=== PATIENT | female | born 1960 | race Caucasian/White ===

== ENCOUNTER 2016-11-14 14:15 | Outpatient (CLI) | payer OTHER ==
--- NOTE | 2016-11-18 18:40 | Mammography Report ---
DIGITAL SCREENING MAMMOGRAM: 11/14/2016 CLINICAL INDICATION: A 56-year-old for screening. TECHNIQUE: Routine CC and MLO projections were obtained of the breasts. COMPARISON: 10/2015, 09/2014, 05/2013, 04/2012, 02/2011, 11/2009, 10/2008. FINDINGS: The breasts demonstrate scattered fibroglandular densities bilaterally. Postbiopsy change s in the left breast are stable. A few coarse and punctate, typically benign calcifications are pres ent. No suspicious masses, clustered microcalcifications, or regions of architectural distortion are identified. IMPRESSION: BENIGN FINDINGS. RECOMMENDATION: Routine annual screening unless otherwise clinically indicated. BI-RADS category 2, benign findings. STANDARD QUALIFYING STATEMENTS 1. This examination was reviewed with the aid of Computer-Aided Detection (CAD). 2. A negative or benign imaging report should not delay biopsy if clinically suspicious findings are present. Consider surgical consultation if warranted. More than 5% of cancers are not identified by i maging. 3. Dense breasts may obscure an underlying neoplasm. JOB #: [id number] EXT JOB #:[id number]
== END 2016-11-14 14:16 | disposition home or self-care (01) ==
LOC: DI.S 14:15
PROVIDERS: ATTEND Physician Assistant
DX: Z12.31 Encounter for screening mammogram for malignant neoplasm of breast (principal)
CPT/HCPCS: 77067

== ENCOUNTER 2017-04-13 17:49 | Emergency (ER) | payer OTHER ==
[2017-04-13 17:56] VITALS: BP 152/68
--- NOTE | 2017-04-13 18:46 | ED Physician Documentation ---
PD HPI URI - Stated complaint Stated Complaint: THROAT SWELLING - Chief complaint Chief Complaint: Heent - History obtained from History obtained from: Patient - History of Present Illness Timing - onset: How many days ago (few) Timing duration: Days (few) Timing details: Gradual onset, Still present Associated symptoms: Fever, Chills, Sore throat, Swollen nodes. 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 denies: Abdominal Pain, Vomiting, Diarrhea Skin: denies: Rash, Lesions PD PAST MEDICAL HISTORY - Past Medical History Cardiovascular: Hypertension, High cholesterol Respiratory: None Endocrine/Autoimmune: Type 2 diabetes GI: None : None HEENT: None Psych: None Musculoskeletal: Osteoarthritis Derm: None - Past Surgical History /COMPUTER SERVICE TECHNICIAN: section, Other - Present Medications Home Medications: Ambulatory Orders Medication Instructions Recorded Confirmed Cholecalciferol (Vitamin D3) 2,000 unit PO DAILY 04/06/13 04/13/17 [Vitamin D] Lisinopril 20 mg PO DAILY 04/06/13 04/13/17 Metformin HCl 1,000 mg PO BID 04/06/13 04/13/17 Multivitamin [Multivitamins] 1 each PO DAILY 04/06/13 04/13/17 Pravastatin Sodium 40 mg PO HS 04/06/13 04/13/17 Cephalexin [Keflex] 500 mg PO QID #28 capsule 04/13/17 Cetirizine [ZyrTEC] 10 mg PO ONCE 04/13/17 04/13/17 Dexamethasone [Decadron] 4 mg PO DAILY #5 tablet 04/13/17 HYDROcod/ACETAM 5/325 [[place] 5/325] 1 tab PO Q6H PRN #15 tablet 04/13/17 - Allergies Allergies/Adverse Reactions: Allergies Allergy/AdvReac Type Severity Reaction Status Date / Time Penicillins Allergy Rash Verified 04/13/17 17:54 - Social History Does the pt smoke?: No Smoking Status: Never smoker Does the pt drink ETOH?: No Does the pt have substance abuse?: No - Immunizations Immunizations are current?: Yes - POLST Patient has POLST: No PD ED PE NORMAL - Vitals Vital signs reviewed: Yes - General General: Alert and oriented X 3, Well developed/nourished, Other (some muffling of voice. There is large swelling left peritonsillar area with protrusion of mucosal tissue toward midline. Small point of white that looks like pimple head at mid portion of the swelling. Touching at that spot with tongue depressor caused a steady flow of pus from a hole in that location. ) - Neck Neck: Supple, no meningeal sign, Other (left anterior adenopathy. ) - Cardiac Cardiac: RRR, No murmur - Respiratory Respiratory: Clear bilaterally - Abdomen Abdomen: Soft, Non tender - Derm Derm: Normal color, Warm and dry - Neuro Neuro: Alert and oriented X 3, No motor deficit. No: Normal speech (some hoarseness) - Psych Psych: Normal mood Results - Vitals Vitals: Oxygen O2 Source Room air - Labs Labs: Microbiology 04/13/17 19:05 Throat Culture - Preliminary Throat MIXED OROPHARYNGEAL PREET PRESENT. NO BETA STREP PRESENT IN CULTURE. PD MEDICAL DECISION MAKING - ED course Complexity details: re-evaluated patient (feeling much improved after drainage, IV meds/abx. ), considered differential (spontaneous drainage from just touching the abscess with tongue depressor. It had adequate hole to allow continued drainage and the abscess seems significantly deflated.), d/w patient, d/w community resource consultant ([place] coordinating physician, who said patient can go to any ENT and did not need to see a [place] staff one.) Departure - Departure Disposition: 01 Home, Self Care Clinical Impression: Peritonsillar abscess Condition: Stable Record reviewed to determine appropriate education?: Yes Instructions: ED Peritonsillar Abscess Follow-Up: Norberto Thompson MD [Physician No Access] - Prescriptions: Cephalexin [Keflex] 500 mg PO QID #28 capsule Dexamethasone [Decadron] 4 mg PO DAILY #5 tablet HYDROcod/ACETAM 5/325 [[place] 5/325] 1 tab PO Q6H PRN #15 tablet PRN Reason: Pain Comments: The [place] patient admitting representative said we could just give your referral to and ENT group in [place]. I gave her the name of 1 of the ENT in the [facility] but when you call them just ask for any provider that is next available. You could also go with the provider that Dr. Naylor uses in the [place] said that was okay. For the infection use cephalexin as directed. Decadron daily for 5 more days for the inflammation part follow-up with your primary care or preferably ear nose and throat in 3 or 4 days for reevaluation. Potentially there is sometimes repeat drainage that needs to occur. After a peritonsillar abscess, there is also question her discussion of whether to have a tonsil surgery. Return if worsening again. Discharge Date/Time: 04/13/17 20:55
[2017-04-13] MEDS ORDERED: cefTRIAXone 2 GM in SODIUM CHLORIDE 0.9% MINIBAG 100 ML IV STA (19:08)
[2017-04-13] MEDS ORDERED: HYDROmorphone 0.5 MG/0.5 ML SYRINGE IVP STA (19:08)
[2017-04-13] MEDS ORDERED: DEXAMETHASONE 10 MG/ML VIAL IVP STA (19:08)
[2017-04-13] MEDS ORDERED: KETOROLAC 30 MG/ML VIAL IVP STA (19:08)
[2017-04-13] MEDS ORDERED: cefTRIAXone 2 GM VIAL ONE (19:36)
[2017-04-13] MEDS ORDERED: HYDROmorphone 1 MG/ML SYRINGE ONE (19:36)
[2017-04-13] MEDS ORDERED: KETOROLAC 30 MG/ML VIAL ONE (19:36)
[2017-04-13] MEDS ORDERED: DEXAMETHASONE 10 MG/ML VIAL ONE (19:36)
[2017-04-13] MEDS ORDERED: HYDROcod/ACET 5/325 Prepack 6 PO ONE ×2 (20:40→20:52)
== END 2017-04-13 20:55 | disposition home or self-care (01) ==
LOC: ED 17:49
DX: J36 Peritonsillar abscess (principal); I10 Essential (primary) hypertension; E78.00 Pure hypercholesterolemia, unspecified; E11.9 Type 2 diabetes mellitus without complications
CPT/HCPCS: 87070; 96365; 96375; 99283; J1170

== ENCOUNTER 2018-01-29 08:37 | Outpatient (CLI) | payer OTHER ==
--- NOTE | 2018-02-01 12:38 | Mammography Report ---
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 TECHNIQUE: Bilateral CC, left laterally exaggerated CC, bilateral MLO views were obtained. COMPARISON: 11/14/2016, 11/09/2015, 09/21/2014, 06/04/2013. FINDINGS: The breasts demonstrate scattered fibroglandular densities bilaterally. Post operative changes in the left breast are stable. Typically benign coarse calcifications are seen in the right breast. The right MLO view reveals a new symmetry 8 cm posterior to the nipple which is not definitely identified on the cc view and requires additional spot compression imaging. IMPRESSION: Incomplete examination RECOMMENDATION: Additional evaluation as above. BIRADS CATEGORY 0: Incomplete examination STANDARD QUALIFYING STATEMENTS: 1. This examination was reviewed with the aid of Computer-Aided Detection (CAD). 2. A negative or benign imaging report should not delay biopsy if clinically suspicious findings are present. Consider surgical consultation if warrented. More than 5% of cancers are not identified by imaging. 3. Dense breasts may obscure an underlying neoplasm.
== END 2018-01-29 08:38 | disposition home or self-care (01) ==
LOC: DI.N 08:37
PROVIDERS: ATTEND Physician Assistant
DX: Z12.31 Encounter for screening mammogram for malignant neoplasm of breast (principal)
CPT/HCPCS: 77067

== ENCOUNTER 2018-09-14 08:00 | Outpatient (CLI) | payer OTHER ==
[2018-09-15 13:26] LABS: HEPATITIS B SURFACE ANTIGEN NON-REACTIVE (NON-REACTIVE)
[2018-09-15 14:36] LABS: HIV AG/AB 4TH GEN NON-REACTIVE (NON-REACTIVE)
== END 2018-09-14 23:59 | disposition home or self-care (01) ==
LOC: LAB.R 08:00
PROVIDERS: ATTEND Pediatrics
DX: Z11.4 Encounter for screening for human immunodeficiency virus [HIV] (principal); Z77.21 Contact with and (suspected) exposure to potentially hazardous body fluids
CPT/HCPCS: 87340; 87389

== ENCOUNTER 2019-07-28 11:11 | Outpatient (CLI) | payer OTHER ==
--- NOTE | 2019-07-28 12:21 | Mammography Report ---
Reason: ROUTINE MAMMO Procedure Date: 07/28/2019 Accession Number: [id number] / [id number] Procedure: MGS - Screening Mammo Dig Bilat CPT Code: Final Report FULL RESULT: EXAM: Screening Mammo Dig Bilat DATE: 07/28/2019 11:32 AM CLINICAL HISTORY: History of left breast lipoma status post biopsy. For routine screening. TECHNIQUE: (B) - Bilateral CC and MLO views were obtained. COMPARISON: 11/14/2016, 11/09/2015, 10-04, 06/04/2013, 05/21/2012, 02/28/2011, 11/24/2009. PARENCHYMAL PATTERN: (A) - The breasts demonstrate scattered fibroglandular densities bilaterally. FINDINGS: No significant interval change. There are no suspicious masses, calcifications, or areas of distortion. A few scattered benign-appearing calcifications are stable. IMPRESSION: Negative examination. BI-RADS category 1. RECOMMENDATION: (ANNUAL) - Recommend routine annual screening mammography. BI-RADS CATEGORY: (1) - Negative. STANDARD QUALIFYING STATEMENTS: 1. This examination was not reviewed with the aid of Computer-Aided Detection (CAD). 2. A negative or benign imaging report should not preclude biopsy if clinically suspicious findings are present. 3. Dense breasts may obscure an underlying neoplasm. 4. This examination was reviewed without the aid of 3D breast imaging (tomosynthesis).
== END 2019-07-28 11:12 | disposition home or self-care (01) ==
LOC: DI.S 11:11
DX: Z12.31 Encounter for screening mammogram for malignant neoplasm of breast (principal)
CPT/HCPCS: 77067

== ENCOUNTER 2019-12-27 18:02 | Outpatient (CLI) | payer OTHER | END 2019-12-27 18:03 | disposition home or self-care (01) | LOC: LAB 18:02 | PROVIDERS: ATTEND Pediatrics | DX: Z11.59 Encounter for screening for other viral diseases (principal) | CPT/HCPCS: 81599 ==

== ENCOUNTER 2020-12-25 09:46 | Outpatient (CLI) | payer OTHER ==
--- NOTE | 2020-12-26 11:52 | Mammography Report ---
BILATERAL DIGITAL SCREENING MAMMOGRAM 3D/2D: 12/25/2020 CLINICAL: Routine screening. Comparison is made to exams dated: 07/28/2019 mammogram - [facility], 02/16/2018 mamm ogram, 02/16/2018 ultrasound - [facility], 01/29/2018 mammogram, 11/14/2016 mammogram, and 11/09/2015 mammogram - [facility]. The tissue of both breasts is predominantly fat ty. No significant masses, calcifications, or other findings are seen in either breast. There has been no significant interval change. IMPRESSION: NEGATIVE There is no mammographic evidence of malignancy. A 1 year screening mammogram is recommended. This exam was interpreted at Station ID: [id number]. NOTE: For mammograms, a report in lay terms will be sent to the patient. Approximately 15% of breast malignancies will not be visualized mammographically. In the management of a palpable breast mass, a negative mammogram must not discourage biopsy of a clinically suspicious lesion. Electronically Signed By: Mark Vivas acr/penrad:12/25/2020 17:40:08 ACR BI-RADS Category 1: Negative 3341F PARENCHYMAL PATTERN: (F) - The breast(s) demonstrate(s) diffuse fatty replacement. BI-RADS CATEGORY: (1) - 1 RECOMMENDATION: (ANNUAL) - Recommend routine annual screening mammography. [id number] 1 year screening LATERALITY: (B)
== END 2020-12-25 09:47 | disposition home or self-care (01) ==
LOC: DI.S 09:46
DX: Z12.31 Encounter for screening mammogram for malignant neoplasm of breast (principal)

== ENCOUNTER 2022-06-04 13:13 | Outpatient (CLI) | payer OTHER ==
--- NOTE | 2022-06-05 10:58 | Mammography Report ---
BILATERAL DIGITAL SCREENING MAMMOGRAM 3D/2D: 06/04/2022 CLINICAL: Routine screening. Comparison is made to exams dated: 12/25/2020 mammogram and 07/28/2019 mammogram - [facility]. Both breasts are almost entirely fatty (category a/<25% glandular tissue). No significant masses, calcifications, or other findings are seen in either breast. There has been no significant interval change. IMPRESSION: NEGATIVE There is no mammographic evidence of malignancy. A 1 year screening mammogram is recommended. Based on the Tyrer Cuzick model (a risk assessment model) the patients lifetime risk is 4.2% and her 10 year risk is 1.7%. According to the ACR, ACS, and NCCN guidelines, an annual breast MRI exam dinesh g with mammogram is recommended if the patients lifetime risk is 20% or greater. This exam was interpreted at Station ID: [id number]. NOTE: For mammograms, a report in lay terms will be sent to the patient. Approximately 15% of breast malignancies will not be visualized mammographically. In the management of a palpable breast mass, a negative mammogram must not discourage biopsy of a clinically suspicious lesion. Electronically Signed By: Nacho johnson/penrad:06/04/2022 15:59:01 ACR BI-RADS Category 1: Negative 3341F PARENCHYMAL PATTERN: (F) - The breast(s) demonstrate(s) diffuse fatty replacement. BI-RADS CATEGORY: (1) - 1 RECOMMENDATION: (ANNUAL) - Recommend routine annual screening mammography. [id number] 1 year screening LATERALITY: (B)
== END 2022-06-04 13:14 | disposition home or self-care (01) ==
LOC: DI.S 13:13
PROVIDERS: ATTEND Registered Nurse
DX: Z12.31 Encounter for screening mammogram for malignant neoplasm of breast (principal)

== ENCOUNTER 2023-06-08 13:10 | Outpatient (CLI) | payer OTHER ==
--- NOTE | 2023-06-09 08:48 | Mammography Report ---
BILATERAL DIGITAL SCREENING MAMMOGRAM 3D/2D: 06/08/2023 CLINICAL: Routine screening. Comparison is made to exams dated: 06/04/2022 mammogram, 12/25/2020 mammogram, and 07/28/2019 mammogram - [facility]. There are scattered areas of fibroglandular density in both breasts (category b / 25%-50% glandular t issue). No significant masses, calcifications, or other findings are seen in either breast. There has been no significant interval change. IMPRESSION: NEGATIVE There is no mammographic evidence of malignancy. A 1 year screening mammogram is recommended. Based on the Tyrer Cuzick model (a risk assessment model) the patients lifetime risk is 6.2% and her 10 year risk is 2.6%. According to the ACR, ACS, and NCCN guidelines, an annual breast MRI exam dinesh g with mammogram is recommended if the patients lifetime risk is 20% or greater. This exam was interpreted at Station ID: [id number]. NOTE: For mammograms, a report in lay terms will be sent to the patient. Approximately 15% of breast malignancies will not be visualized mammographically. In the management of a palpable breast mass, a negative mammogram must not discourage biopsy of a clinically suspicious lesion. Electronically Signed By: Jaimee teixeira/zachary:06/08/2023 16:58:15 letter sent: No_Letter ACR BI-RADS Category 1: Negative 3341F PARENCHYMAL PATTERN: (A) - The breast(s) demonstrate(s) scattered fibroglandular densities. BI-RADS CATEGORY: (1) - 1 Mammogram [id number] 1 year screening LATERALITY: (B)
== END 2023-06-08 13:11 | disposition home or self-care (01) ==
LOC: DI.S 13:10
PROVIDERS: ATTEND Registered Nurse
DX: Z12.31 Encounter for screening mammogram for malignant neoplasm of breast (principal); R92.323 Mammographic fibroglandular density, bilateral breasts